=== PATIENT | female | born 1960 | race Two or more races ===

== ENCOUNTER → 2017-07-05 | Outpatient (CLI) | payer OTHER ==
[~2017-07-05] VITALS: Ht 152.4 cm; Wt 90.7 kg
[~2017-07-05] MED LIST: CATAFLAM50 MG PO; DECADRON P4 MG/ML-1M IH; FLEXERIL10 MG PO; HYZAAR 100/25 T1 TAB; HYZAAR 100/25 T1 TAB PO; LOPRESSOR25 MG; LOPRESSOR25 MG PO; OSEL75CA PO; TORADOL60 MG IM; TRETAL PO; VOLTAREM 50 MG PO
== END | disposition home or self-care (01) ==
LOC: PPHC 08:20
DX: M62.830 Muscle spasm of back (principal); G62.89 Other specified polyneuropathies

== ENCOUNTER 2018-01-07 13:54 | Outpatient (CLI) | payer OTHER ==
[~2018-01-07 13:54] MED LIST changes: +ORPHENADRINE C100 MG PO
== END 2018-01-07 15:35 | disposition home or self-care (01) ==
LOC: MRI 13:54
DX: M70.61 Trochanteric bursitis, right hip (principal)
CPT/HCPCS: 72148

== ENCOUNTER 2018-09-26 15:08 | Outpatient (CLI) | payer OTHER | END 2018-09-26 18:00 | disposition home or self-care (01) | LOC: LAB 15:08 | DX: J11.1 Influenza due to unidentified influenza virus with other respiratory manifestations (principal); J06.9 Acute upper respiratory infection, unspecified ==

== ENCOUNTER 2020-01-25 18:36 | Emergency (ER) | payer OTHER ==
[~2020-01-25] VITALS: Ht 165.1 cm; Wt 88.0 kg
[2020-01-25] MEDS ORDERED: ATACAND32 MG (18:50)
== END 2020-01-25 20:53 | disposition home or self-care (01) ==
LOC: ER 18:36
DX: B34.9 Viral infection, unspecified (principal); R07.0 Pain in throat

== ENCOUNTER 2020-03-05 06:05 | Outpatient (CLI) | payer OTHER ==
[~2020-03-05 06:05] MED LIST changes: +ATACAND32 MG
== END 2020-03-05 06:23 | disposition home or self-care (01) ==
LOC: LAB 06:05
PROVIDERS: ATTEND Internal Medicine Cardiovascular Disease
DX: I10 Essential (primary) hypertension (principal); E11.9 Type 2 diabetes mellitus without complications; E03.8 Other specified hypothyroidism; E78.2 Mixed hyperlipidemia; E55.9 Vitamin D deficiency, unspecified

== ENCOUNTER 2020-03-16 14:19 | Outpatient (CLI) | payer OTHER | END 2020-03-16 14:33 | disposition home or self-care (01) | LOC: MAMO-SONO 14:19 | PROVIDERS: ATTEND Internal Medicine Cardiovascular Disease | DX: Z12.31 Encounter for screening mammogram for malignant neoplasm of breast (principal); N63.11 Unspecified lump in the right breast, upper outer quadrant ==

== ENCOUNTER 2020-03-17 15:12 | Outpatient (CLI) | payer OTHER | END 2020-03-17 15:24 | disposition home or self-care (01) | LOC: SONOGRAMA 15:12 | PROVIDERS: ATTEND Internal Medicine Cardiovascular Disease | DX: N63.11 Unspecified lump in the right breast, upper outer quadrant (principal) ==

== ENCOUNTER 2020-03-23 08:00 | Outpatient (CLI) | payer OTHER | END 2020-03-23 15:00 | disposition home or self-care (01) | LOC: PPH VACUNA 08:00 | DX: Z23 Encounter for immunization (principal) ==

== ENCOUNTER 2020-03-23 14:14 | Outpatient (CLI) | payer OTHER | END 2020-03-23 14:24 | disposition home or self-care (01) | LOC: NUCLEAR 14:14 | PROVIDERS: ATTEND Internal Medicine Cardiovascular Disease | DX: M81.0 Age-related osteoporosis without current pathological fracture (principal); E55.9 Vitamin D deficiency, unspecified ==

== ENCOUNTER 2020-06-24 08:50 | Outpatient (CLI) | payer OTHER ==
[~2020-06-24 08:50] MED LIST changes: +HYZAAR 100-251 EACH
== END 2020-06-24 18:50 | disposition home or self-care (01) ==
LOC: PPH VACUNA 08:50
DX: Z23 Encounter for immunization (principal)

== ENCOUNTER → 2020-10-11 | Outpatient (CLI) | payer OTHER | END | disposition home or self-care (01) | LOC: RAD 15:44 | PROVIDERS: ATTEND Pediatrics | DX: R52 Pain, unspecified (principal); S52.501A Unspecified fracture of the lower end of right radius, initial encounter for closed fracture ==

== ENCOUNTER → 2021-01-07 15:37 | Outpatient (CLI) | payer OTHER ==
[~2021-01-07 15:37] MED LIST changes: +ALEVE220 M1 PO; +DICLOFENAC POTA50 MG PO; +DOLOGESIC 500-1 EACH PO; +DUI500 PO; +ULTRACET PO
== END | disposition home or self-care (01) ==
LOC: RAD 15:37
PROVIDERS: ATTEND Podiatrist
DX: M77.32 Calcaneal spur, left foot (principal); M79.671 Pain in right foot; M79.672 Pain in left foot; M77.31 Calcaneal spur, right foot

== ENCOUNTER 2021-01-26 10:53 | Outpatient (CLI) | payer OTHER ==
[~2021-01-26 10:53] MED LIST changes: -ALEVE220 M1 PO; -DUI500 PO; -ULTRACET PO
== END 2021-01-26 10:56 | disposition home or self-care (01) ==
LOC: SONOGRAMA 10:53 → MAMO-SONO 13:15
PROVIDERS: ATTEND Physical Medicine & Rehabilitation
DX: M76.62 Achilles tendinitis, left leg (principal); M25.59 Pain in other specified joint

== ENCOUNTER 2021-03-04 06:07 | Outpatient (CLI) | payer OTHER ==
[~2021-03-04 06:07] MED LIST changes: -ALEVE220 M1 PO; -DUI500 PO; -ULTRACET PO
== END 2021-03-04 06:08 | disposition home or self-care (01) ==
LOC: LAB 06:07
PROVIDERS: ATTEND Internal Medicine Cardiovascular Disease
DX: I10 Essential (primary) hypertension (principal); E11.9 Type 2 diabetes mellitus without complications; E03.8 Other specified hypothyroidism; E78.2 Mixed hyperlipidemia; E55.9 Vitamin D deficiency, unspecified

== ENCOUNTER → 2021-03-04 | Outpatient (CLI) | payer OTHER ==
[~2021-03-04] MED LIST changes: +ALEVE220 M1 PO; +DUI500 PO; +ULTRACET PO
== END | disposition home or self-care (01) ==
LOC: MAMO-SONO → MRI 08:04
PROVIDERS: ATTEND Orthopaedic Surgery
DX: S86.012A Strain of left Achilles tendon, initial encounter (principal)
CPT/HCPCS: 73721

== ENCOUNTER 2021-03-22 05:45 | Day surgery (SDC) | payer OTHER ==
[2021-03-22] MEDS ORDERED: DUI500 PO (08:32)
[2021-03-22] MEDS ORDERED: ULTRACET PO (08:32)
[2021-03-22] MEDS ORDERED: ALEVE220 M1 PO (08:32)
== END 2021-03-22 12:05 | disposition home or self-care (01) ==
LOC: CIR.AMB 05:45
PROVIDERS: ATTEND Orthopaedic Surgery
DX: S86.012A Strain of left Achilles tendon, initial encounter (principal); Z20.822 Contact with and (suspected) exposure to COVID-19

== ENCOUNTER → 2021-04-04 11:40 | Outpatient (CLI) | payer OTHER ==
[~2021-04-04 11:40] MED LIST changes: +ALEVE220 M1 PO; +DUI500 PO; +ULTRACET PO
== END | disposition home or self-care (01) ==
LOC: PPH VACUNA 11:40
PROVIDERS: ATTEND Emergency Medicine Pediatric Emergency Medicine
DX: Z23 Encounter for immunization (principal)

== ENCOUNTER 2021-04-12 08:00 | Outpatient (CLI) | payer OTHER | END 2021-04-12 08:30 | disposition home or self-care (01) | LOC: PPH VACUNA 08:00 | PROVIDERS: ATTEND Emergency Medicine Pediatric Emergency Medicine | DX: Z23 Encounter for immunization (principal) ==

== ENCOUNTER 2021-05-05 09:38 | Outpatient (CLI) | payer OTHER | END 2021-05-05 09:40 | disposition home or self-care (01) | LOC: MAMO-SONO 09:38 | PROVIDERS: ATTEND Internal Medicine Cardiovascular Disease | DX: N60.12 Diffuse cystic mastopathy of left breast (principal); Z12.31 Encounter for screening mammogram for malignant neoplasm of breast ==

== ENCOUNTER 2021-05-09 13:47 | Outpatient (CLI) | payer OTHER | END 2021-05-09 13:48 | disposition home or self-care (01) | LOC: RAD 13:47 | PROVIDERS: ATTEND Pain Medicine Interventional Pain Medicine | DX: M77.32 Calcaneal spur, left foot (principal); M79.672 Pain in left foot; M76.62 Achilles tendinitis, left leg ==

== ENCOUNTER 2021-09-29 06:11 | Outpatient (CLI) | payer OTHER | END 2021-09-29 06:12 | disposition home or self-care (01) | LOC: LAB 06:11 | PROVIDERS: ATTEND Internal Medicine Cardiovascular Disease | DX: E03.9 Hypothyroidism, unspecified (principal); E11.9 Type 2 diabetes mellitus without complications; I10 Essential (primary) hypertension; E78.2 Mixed hyperlipidemia; E55.9 Vitamin D deficiency, unspecified ==

== ENCOUNTER 2021-09-29 11:35 | Outpatient (CLI) | payer OTHER | END 2021-09-29 12:00 | disposition home or self-care (01) | LOC: SONOGRAMA 11:35 | PROVIDERS: ATTEND Internal Medicine Cardiovascular Disease | DX: I10 Essential (primary) hypertension (principal); E11.9 Type 2 diabetes mellitus without complications; E03.9 Hypothyroidism, unspecified; E55.9 Vitamin D deficiency, unspecified; E78.2 Mixed hyperlipidemia ==

== ENCOUNTER 2022-02-10 06:11 | Outpatient (CLI) | payer OTHER | END 2022-02-10 06:17 | disposition home or self-care (01) | LOC: LAB 06:11 | PROVIDERS: ATTEND Obstetrics & Gynecology | DX: N39.0 Urinary tract infection, site not specified (principal); D50.9 Iron deficiency anemia, unspecified; E03.9 Hypothyroidism, unspecified; R22.1 Localized swelling, mass and lump, neck ==

== ENCOUNTER 2022-03-08 08:53 | Outpatient (CLI) | payer OTHER | END 2022-03-08 08:58 | disposition home or self-care (01) | LOC: PPH VACUNA 08:53 | PROVIDERS: ATTEND Emergency Medicine Pediatric Emergency Medicine | DX: Z23 Encounter for immunization (principal) ==

== ENCOUNTER 2022-03-21 12:51 | Outpatient (CLI) | payer OTHER | END 2022-03-21 13:01 | disposition home or self-care (01) | LOC: PPH VACUNA 12:51 | PROVIDERS: ATTEND Emergency Medicine Pediatric Emergency Medicine | DX: Z23 Encounter for immunization (principal) ==

== ENCOUNTER 2022-03-24 06:08 | Outpatient (CLI) | payer OTHER | END 2022-03-24 06:09 | disposition home or self-care (01) | LOC: LAB 06:08 | PROVIDERS: ATTEND Internal Medicine Rheumatology | DX: M06.9 Rheumatoid arthritis, unspecified (principal); M32.19 Other organ or system involvement in systemic lupus erythematosus; I10 Essential (primary) hypertension; M45.9 Ankylosing spondylitis of unspecified sites in spine; I25.10 Atherosclerotic heart disease of native coronary artery without angina pectoris ==

== ENCOUNTER 2022-12-08 06:50 | Outpatient (CLI) | payer OTHER | END 2022-12-08 06:55 | disposition home or self-care (01) | LOC: RAD 06:50 | PROVIDERS: ATTEND General Practice | DX: M54.9 Dorsalgia, unspecified (principal); M54.2 Cervicalgia ==

== ENCOUNTER 2023-01-17 14:25 | Outpatient (CLI) | payer OTHER | END 2023-01-17 14:29 | disposition home or self-care (01) | LOC: MRI 14:25 | PROVIDERS: ATTEND Anesthesiology | DX: M54.59 Other low back pain (principal) | CPT/HCPCS: 72148 ==

== ENCOUNTER 2023-03-08 | Outpatient (CLI) | payer OTHER ==
[2023-04-07] MEDS ORDERED: NEXIUM 24HR20 MG PO (15:02)
[2023-04-07] MEDS ORDERED: PEPCID AC20 MG PO (15:02)
== END 2023-03-08 00:15 | disposition home or self-care (01) ==
LOC: PPH VACUNA
PROVIDERS: ATTEND Emergency Medicine Pediatric Emergency Medicine
DX: Z23 Encounter for immunization (principal)
CPT/HCPCS: 90686; G0008

== ENCOUNTER 2023-05-30 07:56 | Outpatient (CLI) | payer OTHER ==
[~2023-05-30 07:56] MED LIST changes: +NEXIUM 24HR20 MG PO; +PEPCID AC20 MG PO
== END 2023-05-30 08:10 | disposition home or self-care (01) ==
LOC: SONOGRAMA 07:56
PROVIDERS: ATTEND Internal Medicine Gastroenterology
DX: R10.13 Epigastric pain (principal)

== ENCOUNTER 2023-06-26 15:38 | Outpatient (CLI) | payer OTHER | END 2023-06-26 15:43 | disposition home or self-care (01) | LOC: LAB 15:38 | PROVIDERS: ATTEND Pediatrics Neonatal-Perinatal Medicine | DX: Z20.822 Contact with and (suspected) exposure to COVID-19 (principal) ==

== ENCOUNTER 2023-06-27 07:34 | Outpatient (CLI) | payer OTHER | END 2023-06-27 07:36 | disposition home or self-care (01) | LOC: NUCLEAR 07:34 | PROVIDERS: ATTEND Anesthesiology | DX: M79.606 Pain in leg, unspecified (principal); M79.669 Pain in unspecified lower leg ==

== ENCOUNTER 2023-06-28 08:23 | Outpatient (CLI) | payer OTHER | END 2023-06-28 08:24 | disposition home or self-care (01) | LOC: NUCLEAR 08:23 | PROVIDERS: ATTEND Anesthesiology | DX: M79.606 Pain in leg, unspecified (principal); M79.669 Pain in unspecified lower leg ==

== ENCOUNTER 2023-07-18 06:56 | Emergency (ER) | payer OTHER ==
[~2023-07-18] VITALS: Ht 162.6 cm; Wt 78.5 kg
[2023-07-18 10:24] LABS: URINE APPEARANCE Clear; URINE BILIRRUBIN Negative (NEGATIVE); URINE BLOOD Negative; URINE COLOR Yellow; URINE LEUKOCYTE Negative; URINE NITRATE Negative; URINE UROBILINOGEN 0.2 E.U./dl
[2023-07-18 10:25] LABS: HEMATOCRIT 41.6 % (36.0-45.00); MEAN CELL VOLUME 77.7 fL (80.00-100.00); MEAN CORPUSCULAR HEMOGLOBIN 26.1 pg (27.00-32.0); MEAN CORPUSCULAR HGB CONC 33.6 g/dl (32.0-36.0); PLATELET COUNT 459 K/uL (150-450); RED BLOOD COUNT 5.36 M/uL (4.00-6.00); RED CELL DISTRIBUTION WIDTH 15.1 % (11.5-14.5)
[2023-07-18 10:26] LABS: URINE BACTERIA 23.9 uL (0.0-1933); URINE EPITHELIAL CELLS 2.1 uL (0.0-38.8); URINE RBC 28.5 uL (0.0-20.8); URINE WBC 10.8 uL (0.0-23.2)
[2023-07-18 10:35] LABS: URINE GLUCOSE 100 MG/DL (NEGATIVE); URINE PROTEIN 100 (NEGATIVE)
[2023-07-18 11:04] LABS: ALBUMIN 4.4 gm/dL (3.4-5.0); BILIRUBIN TOTAL 0.3 mg/dL (0.3-1.2); CALCIUM 10.1 mg/dL (8.5-10.1); CREATININE SERUM 0.64 mg/dL (0.55-1.02); GFR 94.34; GLOBULINA 4.7 G/DL (2.4-3.5); POTASSIUM 3.82 mEq/L (3.5-5.1); TOTAL PROTEIN 9.1 gm/dL (6.4-8.2)
== END 2023-07-18 14:07 | disposition home or self-care (01) ==
LOC: ER 06:57
PROVIDERS: Emergency Medicine
DX: K29.70 Gastritis, unspecified, without bleeding (principal); Z20.822 Contact with and (suspected) exposure to COVID-19

== ENCOUNTER 2024-04-28 10:20 | Outpatient (CLI) | payer OTHER | END 2024-04-28 11:00 | disposition home or self-care (01) | LOC: PPH VACUNA 10:20 | PROVIDERS: ATTEND Emergency Medicine Pediatric Emergency Medicine | DX: Z23 Encounter for immunization (principal) ==

== ENCOUNTER 2024-06-25 13:27 | Outpatient (CLI) | payer OTHER | END 2024-06-25 13:33 | disposition home or self-care (01) | LOC: MRI 13:27 | PROVIDERS: ATTEND Orthopaedic Surgery | DX: S86.001A Unspecified injury of right Achilles tendon, initial encounter (principal) | CPT/HCPCS: 73721 ==

== ENCOUNTER 2024-09-16 04:14 | Day surgery (SDC) | payer OTHER ==
[2024-09-09 08:32] VITALS: BP 143/84
[2024-09-09 08:44] LABS: PH,URINE 6.5 (5.0-8.0); URINE APPEARANCE Clear; URINE BILIRRUBIN Negative (NEGATIVE); URINE BLOOD Negative; URINE COLOR Yellow; URINE GLUCOSE Negative (NEGATIVE); URINE KETONE Negative (NEGATIVE); URINE LEUKOCYTE Small; URINE NITRATE Negative; URINE PROTEIN Negative (NEGATIVE); URINE UROBILINOGEN 0.2 E.U./dl
[2024-09-09 08:46] LABS: HEMATOCRIT 39.8 % (36.0-45.00); HEMOGLOBIN 12.8 g/dL (12.0-15.00); MEAN CELL VOLUME 80.1 fL (80.00-100.00); MEAN CORPUSCULAR HEMOGLOBIN 25.9 pg (27.00-32.0); MEAN CORPUSCULAR HGB CONC 32.3 g/dl (32.0-36.0); PLATELET COUNT 336 K/uL (150-450); RED BLOOD COUNT 4.96 M/uL (4.00-6.00); RED CELL DISTRIBUTION WIDTH 14.9 % (11.5-14.5)
[2024-09-09 08:49] LABS: URINE BACTERIA 63.6 uL (0.0-1933); URINE EPITHELIAL CELLS 29.1 uL (0.0-38.8); URINE RBC 7.5 uL (0.0-20.8); URINE WBC 16.6 uL (0.0-23.2)
[2024-09-09 09:07] LABS: INR 0.96; PARTIAL THROMBOPLASTIN TIME 25.1 SECONDS (22.0-34.0); PROTHROMBIN TIME 10.5 SECONDS (9.0-11.5)
[2024-09-09 09:56] LABS: ALBUMIN 3.6 gm/dL (3.4-5.0); BILIRUBIN TOTAL 0.28 mg/dL (0.3-1.2); CALCIUM 9.6 mg/dL (8.5-10.1); CREATININE SERUM 0.61 mg/dL (0.55-1.02); GFR 99.38; GLOBULINA 3.6 G/DL (2.4-3.5); POTASSIUM 4.28 mEq/L (3.5-5.1); TOTAL PROTEIN 7.2 gm/dL (6.4-8.2)
[~2024-09-16] VITALS: Ht 162.6 cm; Wt 83.5 kg
[~2024-09-16 04:14] MED LIST changes: +CATAFLAN
[2024-09-16] MEDS ORDERED: CEFADROXIL500 MG PO (08:47)
[2024-09-16] MEDS ORDERED: ASA325 M1 PO (08:47)
[2024-09-16] MEDS ORDERED: PERCOCET 5-3251 EACH PO (08:47)
[2024-09-16] MEDS ORDERED: ISOPROPYL ALCOHOL 30 ML OUNCE TOP ONE (11:00)
[2024-09-16] MEDS ORDERED: BUPIVACAINE HCL 30 ML VIAL IJ ONE (11:00)
[2024-09-16] MEDS ORDERED: CEFAZOLIN SODIUM 1,000 MG VIAL IV ONE (11:00)
[2024-09-16] MEDS ORDERED: POVIDONE-IODINE 118 ML BOTT TOP ONE (11:00)
== END 2024-09-16 13:45 | disposition home or self-care (01) ==
LOC: CIR.AMB 04:14
PROVIDERS: ATTEND Orthopaedic Surgery
DX: S86.011A Strain of right Achilles tendon, initial encounter (principal); S90.01XA Contusion of right ankle, initial encounter; I10 Essential (primary) hypertension